=== PATIENT | female | born 1970 | race Caucasian/White ===

== ENCOUNTER 2018-06-27 08:06 | Outpatient (CLI) | payer OTHER, BC ==
[2018-06-27 12:30] LABS: eGFR (Non-African) > 60
--- NOTE | 2018-06-27 15:02 | Diagnostic Imaging Report ---
AMBER MURRAY [facility] [id number] [facility] [address] [address] Report Submission Date: Jun 27, 2018 12:06:37 PM CDT Patient Study Name: STEPHIE SAWYER Date: Jun 27, 2018 8:38:01 AM CDT Modality Type: US Gender: F Description: US TRANSVAGINAL PELVIS : 72 Institution: [facility] Physician: AMBER MURRAY Endovaginal pelvic ultrasound History: Heavy and irregular bleeding Transverse and longitudinal images were obtained through the pelvis endovaginally. The uterus is anteverted and measures 8.0 x 5.5 x 6.7 cm. The left ovary measures 2.0 x 1.2 x 1.5 cm in greatest dimension. The right ovary measures 1.8 x 1.2 x 2.2 cm in greatest dimension. Both ovaries appear normal. There is no free fluid in the cul-de-sac. There are several nabothian cysts of the cervix. The endometrium is thickened up to 1.7 cm. However, this degree of endometrial stripe thickening can be seen in a premenopausal female at late cycle. The technologist states that the patient is on the 28th day of her cycle. Assessment of the uterus is somewhat limited. There do appear to be tiny cystic areas around the endometrium suggesting adenomyosis. Impression: Normal ovaries. Nabothian cysts of the cervix. Please see body of report for further discussion with regard to the endometrium. No fibroids are seen. Electronically signed on Jun 27, 2018 12:06:37 PM CDT by: Tahmina ASKEW
== END 2018-06-27 08:08 ==
LOC: LAB 08:06
PROVIDERS: ATTEND Family Medicine
DX: N88.8 Other specified noninflammatory disorders of cervix uteri (principal); N92.0 Excessive and frequent menstruation with regular cycle; I10 Essential (primary) hypertension; R73.03 Prediabetes
CPT/HCPCS: 36415; 76830; 80053; 80061; 82672; 83001; 83036

== ENCOUNTER 2019-02-25 08:10 | Outpatient (CLI) | payer OTHER, BC ==
[2019-02-25 09:32] LABS: TSH 2.39 mIU/l (0.465-4.685)
== END 2019-02-25 08:15 ==
LOC: LAB 08:10
PROVIDERS: ATTEND Obstetrics & Gynecology Gynecology
DX: N95.1 Menopausal and female climacteric states (principal)
CPT/HCPCS: 36415; 82670; 83001; 84439; 84443

== ENCOUNTER 2019-03-12 09:56 | Outpatient (CLI) | payer OTHER, BC ==
--- NOTE | 2019-03-12 15:48 | Diagnostic Imaging Report ---
PATIENT MR#: [id number] PATIENT PATIENT NAME: STEPHIE SAWYER DATE OF : 1970 REFERRING PHYSICIAN: NANI MAURICE EXAM DATE: 03/12/2019 ACCESSION NUMBER: [id number] EXAM DESCRIPTION: ANKLE 3 VIEWS OR MORE CLINICAL HISTORY: LEFT ANKLE PAIN, PT STATES AVULSION FX IN JULY 2011 COMPARISON: No study for comparison is available at the time of interpretation. TECHNIQUE: DX left ankle, 3 views Osseous structures: The osseous structures are normal with no evidence of acute fracture or dislocati on. There is an approximately 8 mm ossification adjacent to the medial malleolus which appears chronic, possibly rela anastasia to prior history of avulsion fracture. Plantar calcaneal spur at the plantar fascia insertion, which may predi spose to plantar fasciitis. Posterior calcaneal spur at the Achilles tendon insertion, which may indicate Achilles te ndinosis. Joint spaces: The bones are well aligned. No articular surface abnormality is noted. Soft tissues: There is generalized soft tissue edema about the ankle. IMPRESSION: 1. Chronic appearing ossification adjacent to the medial malleolus which may represent sequelae of pr ior avulsion fracture. However no acute fracture lucency is identified. Recommend further evaluation with MRI to e xclude posttraumatic pseudarthrosis and pathology of the anterior talofibular ligament. 2. Calcaneal spurs which may predispose to plantar fasciitis and Achilles tendinosis. Read by: Dr. Zuhair Cary Transcribed by: Zuhair Cary Transcribed Date: 03/12/2019 3:48:34 PM Electronically signed by: Dr. Zuhair Cary Date signed: 03/12/2019 3:48:34 PM
== END 2019-03-12 10:06 ==
LOC: RAD 09:56
PROVIDERS: ATTEND Podiatrist Foot & Ankle Surgery
DX: M25.572 Pain in left ankle and joints of left foot (principal)
CPT/HCPCS: 73610

== ENCOUNTER 2019-03-21 08:37 | Emergency (ER) | payer OTHER, BC ==
--- NOTE | 2019-03-21 08:51 | ED Physician Documentation ---
General Adult - HISTORIAN Historian: patient - HPI Stated Complaint: thumb laceration Chief Complaint: Laceration/Recheck/Suture Additional Information: Patient presents to ED with laceration to right thumb. Patient states she la cerated her thumb last night around 1999 with a cheese grater. Onset: hours (12) Timing: still present Severity: mild - ROS CONST: no problems EYES/ENT: none CVS/RESP: none GI/: none MS/SKIN/LYMPH: none NEURO/PSYCH: denies: headache - PAST HX Past History: none Other History: none Surgeries/Procedures: other (back surgery) Allergies/Adverse Reactions: Allergies Allergy/AdvReac Type Severity Reaction Status Date / Time hydrocodone Allergy Unverified 04/16/17 09:45 oxycodone Allergy Unverified 04/16/17 09:45 Penicillins Allergy Unverified 04/16/17 09:44 Sulfa (Sulfonamide Allergy Unverified 04/16/17 09:44 Antibiotics) - SOCIAL HX Smoking History: non-smoker, greater than 1 pack/day Alcohol Use: none Drug Use: none - FAMILY HX Family History: No - REVIEWED ASSESSMENTS Nursing Assessment Reviewed: Yes Vitals Reviewed: Yes Procedures Wound Location: upper extremity (right thumb) Wound's Depth, Shape: superficial, flap Wound Explored: clean Irrigated w/ Saline (ccs): 100 Betadine Prep?: No Wound Debrided: minimal Wound Repaired With: Dermabond Sterile Dressing Applied?: No Splint Applied?: No Sling Applied?: No ED Results Lab/Radiology - Orders Orders: ED Orders Category Date Time Status Diph,Pertuss(Acell),Tet Vac/Pf [Adacel] Med 03/21/19 09:01 Once 0.5 ml IM .ONCE ONE General Adult Physical Exam - PHYSICAL EXAM GENERAL APPEARANCE: no distress EENT: SHAILA NECK: supple RESPIRATORY: no resp distress, breath sounds normal CVS: reg rate & rhythm ABDOMEN: soft, normal bowel sounds, non-tender BACK: normal inspection SKIN: warm/dry EXTREMITIES: non-tender, other (1 cm laceration (flap) to right thumb (dorsal side)) NEURO: oriented X3 Discharge Clincal Impression: Laceration of right thumb Qualifiers: Encounter type: initial encounter Damage to nail status: without damage Foreign body presence: without foreign body Qualified Code(s): S61.011A - Laceration without foreign body of right thumb without damage to nail, initial encounter Referrals: Franci Gramajo MD [Primary Care Provider] - 2 Days Additional Instructions: 1. Keep laceration dry. 2. Skin glue will wear off in 5-7 days 3. Do not apply creams, oils, lotions or ointments to laceration 4. Follow up with PCP within 1 week 5. Return to ER for new or worsening symptoms Condition: Stable Disposition: 01 HOME, SELF-CARE Decision to Admit: NO Date of Decison to Admit: 03/21/19 Decision Time: 09:05
[2019-03-21] MEDS ORDERED: DIPH,PERTUSS(ACELL),TET VAC/PF 0.5 ML DISP.SYRIN IM ONE (09:01)
[2019-03-21 09:26] VITALS: BP 142/90
== END 2019-03-21 09:11 | disposition home or self-care (01) ==
LOC: ED 08:37 → EDSTATUS 08:38 → ED 09:11
DX: S61.011A Laceration without foreign body of right thumb without damage to nail, initial encounter (principal); W27.4XXA Contact with kitchen utensil, initial encounter
CPT/HCPCS: 12001; 90471; 90715; 99282; 99284

== ENCOUNTER 2019-04-03 10:07 | Emergency (ER) | payer OTHER ==
--- NOTE | 2019-04-03 10:14 | ED Physician Documentation ---
General Adult - HISTORIAN Historian: patient - HPI Stated Complaint: neck/heeadache/right sided chest pain Chief Complaint: General Adult Onset: days ago (1) Timing: still present, pain intermittent Severity: moderate Further Comments: yes (She states starting last night she got a sharp stabbing pain that went from the bottom of her head/neck area to her right chest ("almost like gas after a gallbladder surgery" ) She did have a spicy dinner at 730 pm and pain started at 8 pm - she does note a history of mirgraines and she reports she had some mild relief after OTC migraine med. She also took GI med and that also did ease the pain although she reports the paint returns and it is "severe and stabbing" when it happens. She denies any recent injury or accidents. She states that she is not able to recreate the pain. She denies any shortness of air.) - ROS CONST: no problems EYES/ENT: none CVS/RESP: chest pain. denies: shortness of breath, cough GI/: none MS/SKIN/LYMPH: none NEURO/PSYCH: headache - PAST HX Past History: other (hyperthyroidism ) Immunizations: UTD Allergies/Adverse Reactions: Allergies Allergy/AdvReac Type Severity Reaction Status Date / Time hydrocodone Allergy Verified 04/03/19 10:38 oxycodone Allergy Verified 04/03/19 10:38 Penicillins Allergy Verified 04/03/19 10:38 Sulfa (Sulfonamide Allergy Verified 04/03/19 10:38 Antibiotics) Home Medications: Ambulatory Orders Medication Instructions Recorded Norethindrone [Genevieve] 0.35 mg PO DAILY 03/21/19 - SOCIAL HX Smoking History: non-smoker Alcohol Use: none Drug Use: none - FAMILY HX Family History: No - VITAL SIGNS Vital Signs: Vital Signs Temp Pulse Resp BP Pulse Ox 142/90 03/21/19 09:27 - REVIEWED ASSESSMENTS Nursing Assessment Reviewed: Yes Vitals Reviewed: Yes Progress - Progress Progress: 1145: discussed results - pain in right chest is improved although not the headache. She is not wanting further meds due to returning to work. DG General Adult Physical Exam - PHYSICAL EXAM GENERAL APPEARANCE: no distress EENT: eye inspection normal, no signs of dehydration NECK: normal inspection RESPIRATORY: no resp distress, chest non-tender, breath sounds normal CVS: reg rate & rhythm, heart sounds normal ABDOMEN: soft, normal bowel sounds, no distension, non-tender BACK: normal inspection, no CVA tenderness SKIN: warm/dry, normal color EXTREMITIES: non-tender, normal range of motion, no evidence of injury, no edema NEURO: oriented X3 Discharge Clincal Impression: Chest pain Qualifiers: Chest pain type: other chest pain Qualified Code(s): R07.89 - Other chest pain; R07.8 - Other chest pain Referrals: Franci Gramajo MD [Primary Care Provider] - 2 Days Comments: 1. Continue OTC meds as directed as needed for pain 2. Follow up with PCP In 2-4 days 3. Return to ER for any increased concerns Condition: Stable Disposition: 01 HOME, SELF-CARE Decision to Admit: NO Date of Decison to Admit: 04/03/19 Decision Time: 11:53
[2019-04-03] MEDS ORDERED: 0.9 % SODIUM CHLORIDE 1,000 ML IV ONE (10:26)
[2019-04-03] MEDS ORDERED: ASPIRIN 81 MG CHEW TAB PO ONE (10:26)
[2019-04-03] MEDS ORDERED: MAG HYDROX/ALUMINUM HYD/SIMETH 30 ML, Lidocaine 2% Viscous 15 ML PO ONE ×2 (10:26)
[2019-04-03 10:54] LABS: NEUTROPHILS # 5.7 # k/uL (1.4-7.7)
[2019-04-03] MEDS ORDERED: KETOROLAC TROMETHAMINE 30 MG/1ML VIAL IV ONE (11:10)
--- NOTE | 2019-04-03 11:11 | Diagnostic Imaging Report ---
PATIENT MR#: [id number] PATIENT PATIENT NAME: STEPHIE SAWYER DATE OF : 1970 REFERRING PHYSICIAN: Kimmy Romo EXAM DATE: 04/03/2019 ACCESSION NUMBER: [id number] EXAM DESCRIPTION: CHEST 2VIEW Examination: PA and lateral chest. History: Evaluate lung bean. Comparison exam: None provided. Findings: PA and lateral views of the chest demonstrates a normal cardiac and mediastinal silhouette. Elevated right hemidiaphragm. No focal infiltrate. No blunting of the costophrenic margins. Osseous structures are appropriate for age. Impression: No acute pulmonary process. Read by: Dr. Gavino Tapia Transcribed by: Transcribed Date: Electronically signed by: Dr. Gavino Tapia Date signed: 04/03/2019 11:10:31 AM
[2019-04-03 11:13] LABS: eGFR (Non-African) > 60
[2019-04-03] MEDS ORDERED: DEXAMETHASONE SOD PHOS 4 MG/ML VIAL IV ONE (11:41)
[2019-04-03 12:26] VITALS: BP 131/66
== END 2019-04-03 12:02 | disposition home or self-care (01) ==
LOC: ED 10:07
DX: R07.89 Other chest pain (principal)
CPT/HCPCS: 71046; 80053; 84439; 84443; 84481; 84484; 85025; 85379; 93005; 96361; 96374; 96375; 99282; 99284; A9270; J1100; J1885; J7030; S1016